=== PATIENT | male | born 1960 | race Caucasian/White ===

== ENCOUNTER 2018-09-14 09:06 | Day surgery (SDC) | payer BC, OTHER ==
--- NOTE | 2018-09-14 08:38 | HP ---
DATE OF SURGERY: 09/14/2018 HISTORY OF PRESENT ILLNESS: The patient is a 58 year-old with neck mass noted to have some head and neck cancer. 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 PAST MEDICAL HISTORY: Peripheral vascular disease, head and neck cancer. Hypertension, hypercholesterolemia as well as peripheral vascular disease. PAST SURGICAL HISTORY: Vasectomy in [place]. 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 MEDICATIONS: Atorvastatin, lisinopril, Plavix, Requip, hydrochlorothiazide, aspirin. ALLERGIES: NKDA. FAMILY HISTORY: Hypertension. SOCIAL HISTORY: One pack per day smoker. Drinks some alcohol but denied abuse. REVIEW OF SYSTEMS: Twelve systems reviewed. No chest pain or palpitations other systems negative or noncontributory as above and per preadmission questionnaire. PHYSICAL EXAMINATION: GENERAL: No acute distress. HEENT: Sclerae nonicteric. NECK: No JVD. Mass on the neck. CHEST: Equal excursion, nonlabored breathing. CVS: Regular rate and rhythm. ABDOMEN: Soft, nondistended. EXTREMITIES: No significant edema. NEURO: Alert, oriented, moving extremities symmetrically. No gross motor deficits noted. IMPRESSION: Head and neck cancer. He is in need of Port-A-Cath for IV treatments. I feel he is a candidate. General risk of bleeding or infection, risk of thrombosis or pneumothorax, small risk of arterial injury, small risk of port infection or catheter fracture or failure possibly requiring removal or replacement, general risk of anesthesia, deep venous thrombosis, pulmonary embolism, pneumonia but not limited to as well as general risk of aches and pains, risk of hematoma or seroma formation and possible position of catheter. He understands and agrees to the planned procedure. Will proceed with outpatient Port-A-Cath placement.
[~2018-09-14 09:06] MED LIST: CEFAZOLIN 2 GM-D5W BAG** 2 GM/50 ML ML IV ONE; CEFAZOLIN 2 GM-D5W BAG** 2 GM/50 ML ML IV SCH; Lactated Ringers 1,000 ML IV ONE; Lactated Ringers 1,000 ML IV SCH; XYLOCAINE 1% HCL 20 ML MDV ONE
== END 2018-09-14 09:30 | disposition home or self-care (01) ==
LOC: SDC 09:06
PROVIDERS: ATTEND Surgery
DX: C76.0 Malignant neoplasm of head, face and neck (principal); I73.9 Peripheral vascular disease, unspecified; I10 Essential (primary) hypertension; E78.00 Pure hypercholesterolemia, unspecified; Z79.899 Other long term (current) drug therapy; Z53.29 Procedure and treatment not carried out because of patient's decision for other reasons
CPT/HCPCS: J0690; J1642

== ENCOUNTER 2023-12-01 09:37 | Emergency (ER) | payer MEDICARE ==
--- NOTE | 2023-12-01 09:44 | ERPHSYRPT ---
- History of Present Illness Time Seen by Provider: 12/01/23 09:44 Source: patient Exam Limitations: no limitations Allergies/Adverse Reactions: No Known Drug Allergies Allergy (Unverified 09/11/18 18:46) Home Medications: Aspirin EC 81 mg [Ecotrin 81 mg] 81 mg PO DAILY 09/11/18 [History] Clopidogrel Bisulfate [PLAVIX 75 MG Tablet] 75 mg PO DAILY 09/11/18 [History] Lisinopril 10 mg [Zestril 10 MG] 10 mg PO DAILY 09/11/18 [History] Ropinirole 2Mg [Requip 2Mg Tab] 1 mg PO HSPRN PRN 09/11/18 [History] hydroCHLOROthiazide [Hydrochlorothiazide] 12.5 mg PO DAILY 09/11/18 [History] - Past Medical History Pertinent Past Medical History: Yes Neurological History: No Pertinent History ENT History: Other Cardiac History: Hypertension, Peripheral Vascular Disease Respiratory History: No Pertinent History Endocrine Medical History: No Pertinent History Musculoskeletal History: No Pertinent History GI Medical History: No Pertinent History History: No Pertinent History Psycho-Social History: No Pertinent History Male Reproductive Disorders: No Pertinent History Other Medical History: throat cancer, left leg stent implant for circulation - Past Surgical History Past Surgical History: Yes Neuro Surgical History: No Pertinent History Cardiac: Vascular Surgery Respiratory: No Pertinent History Gastrointestinal: No Pertinent History Genitourinary: No Pertinent History Musculoskeletal: No Pertinent History Male Surgical History: Vasectomy Other Surgical History: stent to L leg. eye surgery as child for crossed eyes - Social History Smoking Status: Current every day smoker How long have you smoked: 40 years Exposure to second hand smoke: Yes Drug Use: none - Departure Referrals: FREDDY DIAZ MD [Primary Care Provider] - Follow up/PCP as directed
[2023-12-01 09:57] VITALS: TEMP 96.9
--- NOTE | 2023-12-01 09:57 | ERPHSYRPT ---
- History of Present Illness Time Seen by Provider: 12/01/23 09:44 Source: patient, family (Spouse) Exam Limitations: no limitations Physician History: This is a 63-year-old white male patient of Dr. Diaz who presents to the emergency room with his by private vehicle because he is unable to move his right upper extremity ever since he fell 4 AM over 48 hours ago (11/29/2023). Patient states he does not recall hitting his head. He does state he does not believe he hit his head. Patient denies pain. Patient denies headache. Patient denies visual changes patient denies chest pain. Patient denies shortness of breath. Patient is awake alert and oriented. Patient's spouse provided additional independent history to include the patient is supposed to be on medications for high blood pressure and has not been taking any of his medications. Patient has no known drug allergies. Patient's spouse stated that he has not taken Plavix or aspirin for years. Timing/Duration: day(s) (Over 2 days ago) Severity: severe Character of Deficits: new weakness (Right upper extremity facility) Deficits: no difficulties Baseline/Normal Cognition: alert oriented x 3 Current Cognition: alert oriented x 3 Baseline Gait: walks w/o assistance Associated Symptoms: other (Unable to move his right upper extremity at all) Allergies/Adverse Reactions: No Known Drug Allergies Allergy (Verified 12/01/23 09:52) Home Medications: No Reportable Medications [No Reported Medications] 12/01/23 [History] Travel Risk - International Travel Have you traveled outside of the country in past 3 weeks: No - Emerging Infectious Disease Are you exhibiting symptoms associated with any current EIDs: No - Vaccine Status Hx Covid Vaccintation/Booster/Date Given: No - Review of Systems Constitutional: No Symptoms Eyes: No Symptoms Ears, Nose, & Throat: No Symptoms Respiratory: No Symptoms Cardiac: No Symptoms Abdominal/Gastrointestinal: No Symptoms Genitourinary Symptoms: No Symptoms Musculoskeletal: Other (Unable to move right upper extremity) Skin: No Symptoms Neurological: Other (Unable to move right upper extremity) Psychological: No Symptoms Endocrine: No Symptoms Hematologic/Lymphatic: No Symptoms Immunological/Allergic: No Symptoms All Other Systems: Reviewed and Negative - Past Medical History Pertinent Past Medical History: Yes Neurological History: No Pertinent History ENT History: Other Cardiac History: Hypertension, Peripheral Vascular Disease Respiratory History: No Pertinent History Endocrine Medical History: No Pertinent History Musculoskeletal History: No Pertinent History GI Medical History: No Pertinent History History: No Pertinent History Psycho-Social History: No Pertinent History Male Reproductive Disorders: No Pertinent History Other Medical History: throat cancer, left leg stent implant for circulation - Past Surgical History Past Surgical History: Yes Neuro Surgical History: No Pertinent History Cardiac: Vascular Surgery Respiratory: No Pertinent History Gastrointestinal: No Pertinent History Genitourinary: No Pertinent History Musculoskeletal: No Pertinent History Male Surgical History: Vasectomy Other Surgical History: stent to L leg. eye surgery as child for crossed eyes - Social History Smoking Status: Current every day smoker How long have you smoked: 40 years Exposure to second hand smoke: Yes Drug Use: none - Nursing Vital Signs Nursing Vital Signs: Initial Vital Signs Temperature 96.9 F 12/01/23 09:53 Pulse Rate 82 12/01/23 09:53 Respiratory Rate 17 12/01/23 09:53 Blood Pressure 207/129 12/01/23 09:53 O2 Sat by Pulse Oximetry 99 12/01/23 09:53 Pain Scale Pain Intensity 0 - [place] Coma Scale Best Eye Response ([place]): (4) open spontaneously Best Verbal Response ([place]): (5) oriented Best Motor Response ([place]): (6) obeys commands [place] Total: 15 - Physical Exam General Appearance: no apparent distress, alert, anxiety, thin Eye Exam: bilateral eye: normal inspection, PERRL, EOMI Ears, Nose, Throat Exam: normal ENT inspection, moist mucous membranes Neck Exam: normal inspection, non-tender, supple, full range of motion Respiratory: normal breath sounds, lungs clear, airway intact, No chest tenderness, No respiratory distress Cardiovascular: regular rate/rhythm, normal heart sounds, normal peripheral pulses Gastrointestinal: soft, normal bowel sounds, No tenderness Rectal Exam: not done Back Exam: normal inspection, normal range of motion, No CVA tenderness, No vertebral tenderness Extremity Exam: pelvis stable, other (Right upper extremity facility. Hand digits held in the flexed position. 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 Hand digits held in the) Skin Exam: normal color, warm, dry SpO2 Interpretation: normal O2 Delivery: Room Air Comments: NIH score measured at 7 - Course Nursing assessment & vital signs reviewed: Yes EKG Interpreted by Me: RATE (69), Right [place] Deviation, NORMAL INTERVALS, NORMAL QRS, Other (No acute ischemia on today's twelve-lead EKG.) Ordered Tests: Active Orders 24 hr Category Date Time Status Terminal Operator STAT Care 12/01/23 10:04 Active EKG-ER Only STAT Care 12/01/23 10:04 Active IV Insertion STAT Care 12/01/23 10:04 Active HEAD WITHOUT CONTRAST [CT] Stat Exams 12/01/23 09:44 Completed CBC W DIFF Stat Lab 12/01/23 10:20 Completed CMP Routine Lab 12/01/23 10:05 Received MAGNESIUM Routine Lab 12/01/23 10:05 Received PROTIME WITH INR Stat Lab 12/01/23 10:20 Completed TROPONIN Q4H Lab 12/01/23 14:15 Ordered TROPONIN Q4H Lab 12/01/23 18:15 Ordered UA W/RFX UR CULTURE Stat Lab 12/01/23 10:04 Ordered Medication Summary Discontinued Medications Generic Name Dose Route Start Last Admin Trade Name Freq PRN Reason Stop Dose Admin Hydralazine HCl 10 mg 12/01/23 10:05 12/01/23 10:10 Hydralazine Hcl 20 Mg/Ml Vial IV 12/01/23 10:06 10 mg STAT ONE Administration Hydralazine HCl Confirm 12/01/23 10:09 Hydralazine Hcl 20 Mg/Ml Vial Administered 12/01/23 10:10 Dose 20 mg .ROUTE .STK-MED ONE Hydralazine HCl 10 mg 12/01/23 10:31 12/01/23 10:32 Hydralazine Hcl 20 Mg/Ml Vial IV 12/01/23 10:32 10 mg STAT ONE Administration Hydralazine HCl Confirm 12/01/23 10:29 Hydralazine Hcl 20 Mg/Ml Vial Administered 12/01/23 10:30 Dose 20 mg .ROUTE .STK-MED ONE Lab/Rad Data: Laboratory Result Diagrams 12/01/23 10:20 12/01/23 10:20 Laboratory Results 12/01/23 12/01/23 12/01/23 Range/Units 10:20 10:20 10:20 WBC (4.0-10.5) x10^3/uL RBC (4.1-5.6) x10^6/uL Hgb (12.5-18.0) g/dL Hct (42-50) % MCV (78-100) fL MCH (26-32) pg MCHC (32-36) g/dL RDW (11.5-14.0) % Plt Count (150-450) x10^3/uL MPV (7.5-11.0) fL Gran % (36.0-66.0) % Immature Gran % (Auto) (0.00-0.4) % Nucleat RBC Rel Count (0.00-0.1) % Eos # (Auto) (0-0.5) x10^3/uL Immature Gran # (Auto) (0.00-0.03) x10^3u/L Absolute Lymphs (auto) (1.0-4.6) x10^3/uL Absolute Monos (auto) (0.0-1.3) x10^3/uL Absolute Nucleated RBC (0.00-0.01) x10^3u/L Lymphocytes % (24.0-44.0) % Monocytes % (0.0-12.0) % Eosinophils % (0.00-5.0) % Basophils % (0.0-0.4) % Absolute Granulocytes (1.4-6.9) x10^3/uL Basophils # (0-0.4) x10^3/uL PT 10.5 (9.4-12.5) SECONDS INR 0.96 (0.8-3.0) Sodium Direct 137 L (138-146) mmol/L Potassium 4.4 (3.5-4.9) mmol/L Chloride 103 (98-109) mmol/L Carbon Dioxide 27 (24-29) mmol/L Venous BUN 13 (8-26) mg/dL Creatinine 0.9 (0.6-1.3) mg/dL Glucose 108 H (70-105) mg/dL Ionized Calcium 1.10 L (1.12-1.32) mmol/L Magnesium Cancelled Troponin 0.00 (0.00-0.03) ng/mL 12/01/23 Range/Units 10:20 WBC 7.7 (4.0-10.5) x10^3/uL RBC 4.93 (4.1-5.6) x10^6/uL Hgb 16.2 (12.5-18.0) g/dL Hct 48.5 (42-50) % MCV 98.4 (78-100) fL MCH 32.9 H (26-32) pg MCHC 33.4 (32-36) g/dL RDW 12.5 (11.5-14.0) % Plt Count 248 (150-450) x10^3/uL MPV 8.5 (7.5-11.0) fL Gran % 74.6 H (36.0-66.0) % Immature Gran % (Auto) 0.4 (0.00-0.4) % Nucleat RBC Rel Count 0.0 (0.00-0.1) % Eos # (Auto) 0.07 (0-0.5) x10^3/uL Immature Gran # (Auto) 0.03 (0.00-0.03) x10^3u/L Absolute Lymphs (auto) 1.19 (1.0-4.6) x10^3/uL Absolute Monos (auto) 0.62 (0.0-1.3) x10^3/uL Absolute Nucleated RBC 0.00 (0.00-0.01) x10^3u/L Lymphocytes % 15.5 L (24.0-44.0) % Monocytes % 8.1 (0.0-12.0) % Eosinophils % 0.9 (0.00-5.0) % Basophils % 0.5 (0.0-0.4) % Absolute Granulocytes 5.73 (1.4-6.9) x10^3/uL Basophils # 0.04 (0-0.4) x10^3/uL PT (9.4-12.5) SECONDS INR (0.8-3.0) Sodium Direct (138-146) mmol/L Potassium (3.5-4.9) mmol/L Chloride (98-109) mmol/L Carbon Dioxide (24-29) mmol/L Venous BUN (8-26) mg/dL Creatinine (0.6-1.3) mg/dL Glucose (70-105) mg/dL Ionized Calcium (1.12-1.32) mmol/L Magnesium Troponin (0.00-0.03) ng/mL - Progress Progress: unchanged Progress Note: 12/01/23 10:01 My medical decision making and assignment of high level complexity to this patient's medical issue is based on review of the patient's past medical history, review of the patient's medication list, review patient drug allergy list, history present illness and physical findings on examination. Workup in this patient includes stat CT scan of the head without contrast, twelve-lead EKG, CBC, CMP, magnesium level, urinalysis. Differential diagnosis, hemorrhagic stroke, cerebral infarction, electrolyte abnormalities, arrhythmia 12/01/23 10:25 CT scan of the head without contrast was interpreted by the radiologist and I reviewed the impression. Impression says left mid parietal near vertex acute intraparenchymal hemorrhage. Measurement 1.8 x 2.6 x 2.6 cm. Mild surrounding edema. No midline shift 12/01/23 11:32 This patient's history, presenting complaint and radiographic, laboratory study results were discussed with the [facility] in [facility]. These radiographic studies were sent to the cloud for them to review. Dr. Zarate is accepting this patient directly. There are some whether changes happening at this time. We will follow-up on what modes of transportation are available to us. Patient's current systolic blood pressure is in the 130s to 140 range. Patient is awake alert and oriented. Counseled pt/family regarding: lab results, diagnosis, rad results Medical Desision Making - Independent Historian Additional History obtained from: Spouse - Diagnostic Testing Diagnostic test were ordered, analyzed, and reviewed by me: Yes Radiological Interpretation: Reviewed by me, Teleradiologist Report - Risk of complications The pt has a high risk of morbidity or mortality based on: Decision regarding hospitilization or escalation of hosp level of care - Departure Departure Disposition: Transfer Clinical Impression: Hemorrhagic stroke, Hypertensive crisis Condition: Serious Critical Care Time: Yes Critical Care Time(excluding separately billable procedures): Critical 30-74 mins (45) Referrals: FREDDY DIAZ MD [Primary Care Provider] - Follow up/PCP as directed
[2023-12-01] MEDS ORDERED: APRESOLINE 20 MG/ML INJ ONE ×2 (10:09→10:29)
[2023-12-01] MEDS: APRESOLINE 20 MG/ML INJ IV ONE ×2 (10:10→10:32)
--- NOTE | 2023-12-01 10:25 | XRAY ---
Indication: Right side flaccid. Status post fall. Hypertension. Multiple contiguous axial images obtained through the head without contrast. Comparison: None Age-appropriate global atrophy. Left mid parietal lobe near the vertex demonstrates acute intraparenchymal hemorrhage measuring at least 1.8 x 2.6 x 2.6 cm. Mild surrounding edema but no midline shifting. Fourth ventricle is midline without hydrocephalus. Bony calvarium intact. Visualized paranasal sinuses and mastoid air cells are clear. Impression: Left parietal acute intraparenchymal hemorrhage as detailed. Comment: Telephone report given to Dr. Zamudio at 1018 hrs. on December 01, 2023.
[2023-12-01 10:26] LABS: Absolute Neutrophil Ct (ANC) 5.73 x10^3/uL (1.4-6.9); BASOPHIL % 0.5 % (0.0-0.4); Basophil (Absolute #) 0.04 x10^3/uL (0-0.4); Eosinophil % 0.9 % (0.00-5.0); Eosinophil (Absolute #) 0.07 x10^3/uL (0-0.5); Hematocrit 48.5 % (42-50); Hemoglobin 16.2 g/dL (12.5-18.0); IMMATURE GRAN # 0.03 x10^3u/L (0.00-0.03); IMMATURE GRAN % 0.4 % (0.00-0.4); Lymphocyte (Absolute #) 1.19 x10^3/uL (1.0-4.6); Lymphocytes % 15.5 % (24.0-44.0); Mean Cell Volume 98.4 fL (78-100); Mean Corpuscular Hemoglobin 32.9 pg (26-32); Mean Corpuscular Hgb Concent. 33.4 g/dL (32-36); Mean Platelet Volume 8.5 fL (7.5-11.0); Monocyte (Absolute #) 0.62 x10^3/uL (0.0-1.3); Monocytes % 8.1 % (0.0-12.0); Neutrophil % 74.6 % (36.0-66.0); Platelet Count 248 x10^3/uL (150-450); Red Blood Count 4.93 x10^6/uL (4.1-5.6); Red Cell Distribution Width 12.5 % (11.5-14.0); White Blood Count 7.7 x10^3/uL (4.0-10.5)
[2023-12-01 10:38] LABS: ISTAT K 4.4 mmol/L (3.5-4.9)
[2023-12-01 10:39] LABS: INR 0.96 (0.8-3.0); ISTAT CREA 0.9 mg/dL (0.6-1.3); ISTAT iCA 1.1 mmol/L (1.12-1.32); PROTIME 10.5 SECONDS (9.4-12.5)
[2023-12-01 12:08] VITALS: O2SAT 98
[2023-12-01 12:23] VITALS: BP 145/82; PULSE 102; RESP 21
== END 2023-12-01 12:35 | disposition short-term general hospital (02) ==
LOC: ED 09:37
DX: I61.8 Other nontraumatic intracerebral hemorrhage (principal); G81.01 Flaccid hemiplegia affecting right dominant side; I16.9 Hypertensive crisis, unspecified; Z72.0 Tobacco use
CPT/HCPCS: 36000; 36415; 70450; 80047; 80053; 83735; 84484; 85025; 85610; 93005; 93041; 96374; 96376; 99285; 99291; J0360